=== PATIENT | male | born 1960 | race Two or more races ===

== ENCOUNTER 2021-04-08 02:18 | Emergency (ER) | payer MEDICAID ==
[~2021-04-08] VITALS: Ht 185.4 cm; Wt 96.0 kg
[2021-04-08 02:51] VITALS: BP 110/119
== END 2021-04-08 05:35 | disposition home or self-care (01) ==
LOC: ER 03:15
DX: U07.1 COVID-19 (principal); J12.82 Pneumonia due to coronavirus disease 2019
CPT/HCPCS: 71045; 99284; C9803; U0003; U0005